=== PATIENT | male | born 1950 | race Caucasian/White ===

== ENCOUNTER 2017-09-05 09:23 | Day surgery (SDC) | payer MEDICARE, OTHER ==
[2017-09-05] MEDS: NS 1,000 ML IV (10:17)
[2017-09-05] MEDS ORDERED: PROPOFOL 200 MG/20 ML VIAL As Ordered (10:44)
[2017-09-05] MEDS ORDERED: LIDOCAINE 2% INJ 100 MG/5 ML SDV (FOR ANES.) As Ordered (10:44)
== END 2017-09-05 11:42 | disposition home or self-care (01) ==
LOC: M OPP 09:23
DX: Z12.11 Encounter for screening for malignant neoplasm of colon (principal); Z86.010 Personal history of colon polyps; D12.0 Benign neoplasm of cecum; K64.0 First degree hemorrhoids; K57.30 Diverticulosis of large intestine without perforation or abscess without bleeding; I48.91 Unspecified atrial fibrillation; I10 Essential (primary) hypertension; E78.5 Hyperlipidemia, unspecified; G47.30 Sleep apnea, unspecified; R06.83 Snoring; J01.90 Acute sinusitis, unspecified; Z79.82 Long term (current) use of aspirin; Z79.899 Other long term (current) drug therapy
CPT/HCPCS: 45385

== ENCOUNTER → 2017-12-19 | Outpatient (REF) | payer MEDICARE, OTHER ==
[2017-12-19 11:56] LABS: ANION GAP 6 MEQ/L (8-16); BLOOD UREA NITROGEN 17 MG/DL (7-18); CALCIUM LEVEL 8.8 MG/DL (8.8-10.2); CARBON DIOXIDE LEVEL 26 MEQ/L (21-32); CHLORIDE LEVEL 107 MEQ/L (98-107); CREATININE FOR GFR 1.54 MG/DL (0.70-1.30); GLOMERULAR FILTRATION RATE 48.4 (>49); GLUCOSE, FASTING 84 MG/DL (70-100); POTASSIUM SERUM 4.2 MEQ/L (3.5-5.1); SODIUM LEVEL 139 MEQ/L (136-145)
== END ==
LOC: M LABDRAW1 11:29
DX: R33.9 Retention of urine, unspecified (principal)

== ENCOUNTER → 2017-12-19 | Outpatient (REF) | payer MEDICARE, OTHER ==
[2017-12-19 11:41] LABS: BASO % 0.7 % (0.0-1.0); EOS # 0.3 10^3/uL (0.0-0.50); EOS % 4.3 % (0.0-3.0); HEMATOCRIT 42.1 % (42.0-52.0); HEMOGLOBIN 14.2 g/dl (13.5-17.5); IMMATURE GRANULOCYTE % 0.5 % (0-3.0); LYMPH # 1.7 10^3/uL (1.5-4.5); LYMPH % 29.7 % (24.0-44.0); MEAN CORPUSCULAR HEMOGLOBIN 30.1 pg (27.0-33.0); MEAN CORPUSCULAR HGB CONC 33.7 g/dl (32.0-36.5); MEAN CORPUSCULAR VOLUME 89.2 fl (80.0-96.0); MONO # 0.3 10^3/uL (0.0-0.8); MONO % 4.5 % (0.0-5.0); NEUTROPHILS # 3.5 10^3/uL (1.8-7.7); NEUTROPHILS % 60.3 % (36.0-66.0); PLATELET COUNT, AUTOMATED 304 10^3/uL (150-450); RED BLOOD COUNT 4.72 10^6/uL (4.30-6.10); RED CELL DISTRIBUTION WIDTH 12.6 % (11.5-14.5); WHITE BLOOD COUNT 5.8 10^3/uL (4.0-10.0)
[2017-12-19 12:11] LABS: ALBUMIN 3.8 GM/DL (3.2-5.2); ALBUMIN/GLOBULIN RATIO 1.27 (1.00-1.93); ALKALINE PHOSPHATASE 49 U/L (45-117); ALT/SGPT 35 U/L (12-78); ANION GAP 9 MEQ/L (8-16); AST/SGOT 29 U/L (7-37); BILIRUBIN,TOTAL 0.5 MG/DL (0.2-1.0); BLOOD UREA NITROGEN 17 MG/DL (7-18); CALCIUM LEVEL 8.6 MG/DL (8.8-10.2); CARBON DIOXIDE LEVEL 25 MEQ/L (21-32); CHLORIDE LEVEL 108 MEQ/L (98-107); CHOLESTEROL LEVEL 129 MG/DL (<200); CHOLESTEROL RISK RATIO 2.632 (<5); CREATININE FOR GFR 1.54 MG/DL (0.70-1.30); GLOMERULAR FILTRATION RATE 48.4 (>49); GLUCOSE, FASTING 86 MG/DL (70-100); HDL CHOLESTEROL 49 MG/DL (>40); NON-HDL-C 80 MG/DL; POTASSIUM SERUM 4.3 MEQ/L (3.5-5.1); PROSTATIC SPECIFIC AG MONITOR 9.32 NG/ML (< 4.0); SODIUM LEVEL 142 MEQ/L (136-145); TOTAL PROTEIN 6.8 GM/DL (6.4-8.2); TRIGLYCERIDES LEVEL 100 MG/DL (<150)
== END ==
LOC: M LABDRAW1 11:26
DX: R97.20 Elevated prostate specific antigen [PSA] (principal); I10 Essential (primary) hypertension; R33.9 Retention of urine, unspecified
CPT/HCPCS: 80053

== ENCOUNTER → 2018-02-11 | Outpatient (REF) | payer MEDICARE, OTHER ==
[2018-02-11 16:07] LABS: HEMATOCRIT 42.1 % (42.0-52.0); HEMOGLOBIN 14.5 g/dl (13.5-17.5); MEAN CORPUSCULAR HEMOGLOBIN 30.3 pg (27.0-33.0); MEAN CORPUSCULAR HGB CONC 34.4 g/dl (32.0-36.5); MEAN CORPUSCULAR VOLUME 87.9 fl (80.0-96.0); PLATELET COUNT, AUTOMATED 250 10^3/uL (150-450); RED BLOOD COUNT 4.79 10^6/uL (4.30-6.10); RED CELL DISTRIBUTION WIDTH 12.8 % (11.5-14.5); WHITE BLOOD COUNT 6.5 10^3/uL (4.0-10.0)
[2018-02-11 16:17] LABS: ANION GAP 9 MEQ/L (8-16); BLOOD UREA NITROGEN 19 MG/DL (7-18); CALCIUM LEVEL 8.7 MG/DL (8.8-10.2); CARBON DIOXIDE LEVEL 25 MEQ/L (21-32); CHLORIDE LEVEL 111 MEQ/L (98-107); CREATININE FOR GFR 1.29 MG/DL (0.70-1.30); GLOMERULAR FILTRATION RATE 59.3 (>49); GLUCOSE, FASTING 83 MG/DL (70-100); SODIUM LEVEL 145 MEQ/L (136-145)
== END ==
LOC: M LABDRAW1 15:20
DX: I48.0 Paroxysmal atrial fibrillation (principal); I10 Essential (primary) hypertension
CPT/HCPCS: 80048

== ENCOUNTER → 2018-03-28 | Outpatient (REF) | payer MEDICARE, OTHER ==
[2018-03-28 13:51] LABS: ANION GAP 9 MEQ/L (8-16); BLOOD UREA NITROGEN 28 MG/DL (7-18); CARBON DIOXIDE LEVEL 24 MEQ/L (21-32); CHLORIDE LEVEL 111 MEQ/L (98-107); CREATININE FOR GFR 1.31 MG/DL (0.70-1.30); GLOMERULAR FILTRATION RATE 58.3 (>49); GLUCOSE, FASTING 104 MG/DL (70-100); POTASSIUM SERUM 3.9 MEQ/L (3.5-5.1); PROSTATIC SPECIFIC AG MONITOR 5.66 NG/ML (< 4.0); SODIUM LEVEL 144 MEQ/L (136-145)
== END ==
LOC: M LABDRAW1 11:57
DX: R33.9 Retention of urine, unspecified (principal)
CPT/HCPCS: 84153

== ENCOUNTER → 2018-06-03 | Outpatient (REF) | payer MEDICARE, OTHER ==
[2018-06-03 12:35] LABS: PROSTATIC SPECIFIC AG MONITOR 6.5 NG/ML (< 4.0)
== END ==
LOC: M LABDRAW1 09:31
DX: R33.9 Retention of urine, unspecified (principal)
CPT/HCPCS: 84153

== ENCOUNTER → 2018-07-04 | Outpatient (REF) | payer MEDICARE, OTHER ==
[~2018-07-04] MED LIST: ASPI1TAB PO; ATOR1TAB19 PO; CARI1TAB7 PO; CINN500C9 PO; FLEC150T PO; GLUC1CAP10 PO; MELA1CAP PO; METO50TA7 PO; SAW1CAP2 PO; SILD50TA PO; VITA100067 PO
[2018-07-04 11:39] LABS: BLOOD UREA NITROGEN 18 MG/DL (7-18); CALCIUM LEVEL 8.7 MG/DL (8.8-10.2); CARBON DIOXIDE LEVEL 25 MEQ/L (21-32); CHLORIDE LEVEL 108 MEQ/L (98-107); CREATININE FOR GFR 1.25 MG/DL (0.70-1.30); GLOMERULAR FILTRATION RATE > 60.0 (>49); GLUCOSE, FASTING 89 MG/DL (70-100); POTASSIUM SERUM 4.1 MEQ/L (3.5-5.1); SODIUM LEVEL 141 MEQ/L (136-145)
== END ==
LOC: M LABDRAW1 09:59
PROVIDERS: ATTEND Urology
DX: R33.9 Retention of urine, unspecified (principal)

== ENCOUNTER → 2018-09-15 | Outpatient (CLI) | payer MEDICARE, OTHER ==
--- NOTE | 2018-09-15 10:18 | REP ---
PA and lateral chest: Comparison is 02/01/2009. 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 The lung ness are clear. The cardiac size is normal. The mauricio, mediastinum, and skeletal structures are unremarkable. Impression: Negative PA and lateral chest. There is no interval change. Electronically Signed by Reuben Gutierrez MD 09/15/2018 10:09 A
[2018-09-15 17:27] LABS: BASO # 0.1 10^3/uL (0.0-0.2); BASO % 1.5 % (0.0-1.0); EOS # 0.6 10^3/uL (0.0-0.50); EOS % 9.3 % (0.0-3.0); HEMATOCRIT 45.2 % (42.0-52.0); HEMOGLOBIN 14.9 g/dl (13.5-17.5); LYMPH # 1.3 10^3/uL (1.5-4.5); LYMPH % 21.9 % (24.0-44.0); MEAN CORPUSCULAR HEMOGLOBIN 30.1 pg (27.0-33.0); MEAN CORPUSCULAR VOLUME 91.3 fl (80.0-96.0); MONO # 0.5 10^3/uL (0.0-0.8); MONO % 8.9 % (0.0-5.0); NEUTROPHILS # 3.5 10^3/uL (1.8-7.7); NEUTROPHILS % 57.7 % (36.0-66.0); PLATELET COUNT, AUTOMATED 298 10^3/uL (150-450); RED BLOOD COUNT 4.95 10^6/uL (4.30-6.10)
== END ==
LOC: M ADAMS 09:50
PROVIDERS: ATTEND Physician Assistant Medical
DX: J20.9 Acute bronchitis, unspecified (principal)

== ENCOUNTER → 2019-01-24 | Outpatient (REF) | payer MEDICARE, OTHER ==
[~2019-01-24] MED LIST changes: -ASPI1TAB PO; +ASPI81TA26 PO
[2019-01-24 11:47] LABS: BASO # 0.1 10^3/uL (0.0-0.2); BASO % 0.9 % (0.0-1.0); EOS # 0.3 10^3/uL (0.0-0.50); EOS % 5.8 % (0.0-3.0); HEMATOCRIT 43.7 % (42.0-52.0); HEMOGLOBIN 14.4 g/dl (13.5-17.5); LYMPH # 1.5 10^3/uL (1.5-4.5); LYMPH % 27.8 % (24.0-44.0); MEAN CORPUSCULAR HEMOGLOBIN 30.5 pg (27.0-33.0); MEAN CORPUSCULAR VOLUME 92.6 fl (80.0-96.0); MONO # 0.3 10^3/uL (0.0-0.8); MONO % 5.4 % (0.0-5.0); NEUTROPHILS # 3.3 10^3/uL (1.8-7.7); NEUTROPHILS % 59.7 % (36.0-66.0); PLATELET COUNT, AUTOMATED 272 10^3/uL (150-450); RED BLOOD COUNT 4.72 10^6/uL (4.30-6.10); WHITE BLOOD COUNT 5.5 10^3/uL (4.0-10.0)
[2019-01-24 12:45] LABS: ALBUMIN 3.7 GM/DL (3.2-5.2); ALT/SGPT 27 U/L (12-78); BILIRUBIN,TOTAL 0.4 MG/DL (0.2-1.0); BLOOD UREA NITROGEN 12 MG/DL (7-18); CALCIUM LEVEL 8.8 MG/DL (8.8-10.2); CARBON DIOXIDE LEVEL 27 MEQ/L (21-32); CHLORIDE LEVEL 110 MEQ/L (98-107); CHOLESTEROL LEVEL 142 MG/DL (<200); CHOLESTEROL RISK RATIO 2.629 (<5); GLOMERULAR FILTRATION RATE > 60.0 (>49); GLUCOSE, FASTING 83 MG/DL (70-100); HDL CHOLESTEROL 54 MG/DL (>40); LDL CHOLESTEROL 72 MG/DL (<100); NON-HDL-C 88 MG/DL; POTASSIUM SERUM 4.2 MEQ/L (3.5-5.1); SODIUM LEVEL 144 MEQ/L (136-145); TRIGLYCERIDES LEVEL 82 MG/DL (<150)
== END ==
LOC: M LABDRAW1 07:51
PROVIDERS: ATTEND Family Medicine
DX: I10 Essential (primary) hypertension (principal)

== ENCOUNTER → 2019-06-02 | Outpatient (REF) | payer MEDICARE, OTHER | LOC: M LABDRAW1 11:47 | PROVIDERS: ATTEND Nurse Practitioner Family | DX: N40.0 Benign prostatic hyperplasia without lower urinary tract symptoms (principal) ==

== ENCOUNTER → 2020-01-27 | Outpatient (REF) | payer MEDICARE, OTHER ==
[2020-01-27 13:34] LABS: HEMATOCRIT 46.5 % (42.0-52.0); HEMOGLOBIN 15.4 g/dl (13.5-17.5); MEAN CORPUSCULAR HEMOGLOBIN 30.3 pg (27.0-33.0); MEAN CORPUSCULAR HGB CONC 33.1 g/dl (32.0-36.5); MEAN CORPUSCULAR VOLUME 91.5 fl (80.0-96.0); PLATELET COUNT, AUTOMATED 263 10^3/uL (150-450); RED BLOOD COUNT 5.08 10^6/uL (4.30-6.10); WHITE BLOOD COUNT 6.1 10^3/uL (4.0-10.0)
[2020-01-27 13:52] LABS: ALBUMIN 4.1 GM/DL (3.2-5.2); BILIRUBIN,TOTAL 0.9 MG/DL (0.2-1.0); CHOLESTEROL RISK RATIO 3.057 (<5); CREATININE FOR GFR 1.3 MG/DL (0.70-1.30); GLOMERULAR FILTRATION RATE 58.4 (>49); POTASSIUM SERUM 5.1 MEQ/L (3.5-5.1); PROSTATIC SPECIFIC AG MONITOR 5.02 NG/ML (< 4.00); TOTAL 25(OH) VITAMIN D 34.9 NG/ML (30.0-100.0); TOTAL PROTEIN 7.1 GM/DL (6.4-8.2)
== END ==
LOC: M LABDRWAD 13:14
PROVIDERS: ATTEND Family Medicine
DX: E55.9 Vitamin D deficiency, unspecified (principal); R97.20 Elevated prostate specific antigen [PSA]; I10 Essential (primary) hypertension; Z79.82 Long term (current) use of aspirin

== ENCOUNTER → 2020-05-20 | Outpatient (REF) | payer MEDICARE, OTHER | LOC: M LABDRWAD 12:23 | PROVIDERS: ATTEND Urology | DX: Z12.5 Encounter for screening for malignant neoplasm of prostate (principal) | CPT/HCPCS: 36415; G0103 ==

== ENCOUNTER → 2021-01-11 | Outpatient (CLI) | payer MEDICARE, OTHER ==
[2021-01-11 10:28] LABS: HEMATOCRIT 45.5 % (42.0-52.0); PLATELET COUNT, AUTOMATED 260 10^3/uL (150-450); WHITE BLOOD COUNT 5.7 10^3/uL (4.0-10.0)
[2021-01-11 10:54] LABS: ALBUMIN 3.9 GM/DL (3.2-5.2); ALT/SGPT 37 U/L (12-78); BILIRUBIN,TOTAL 1.1 MG/DL (0.2-1.0); BLOOD UREA NITROGEN 21 MG/DL (7-18); CALCIUM LEVEL 8.8 MG/DL (8.8-10.2); CARBON DIOXIDE LEVEL 26 MEQ/L (21-32); CHLORIDE LEVEL 107 MEQ/L (98-107); CHOLESTEROL LEVEL 164 MG/DL (<200); CHOLESTEROL RISK RATIO 2.827 (<5); CREATININE FOR GFR 1.15 MG/DL (0.70-1.30); GLOMERULAR FILTRATION RATE > 60.0 (>49); GLUCOSE, FASTING 79 MG/DL (70-100); HDL CHOLESTEROL 58 MG/DL (>40); LDL CHOLESTEROL 88 MG/DL (<100); NON-HDL-C 106 MG/DL; POTASSIUM SERUM 4.4 MEQ/L (3.5-5.1); PROSTATIC SPECIFIC AG MONITOR 5.21 NG/ML (< 4.00); SODIUM LEVEL 141 MEQ/L (136-145); TRIGLYCERIDES LEVEL 90 MG/DL (<150)
== END ==
LOC: M WUC 08:25
PROVIDERS: ATTEND Family Medicine
DX: E55.9 Vitamin D deficiency, unspecified (principal); R97.20 Elevated prostate specific antigen [PSA]; I10 Essential (primary) hypertension; N40.1 Benign prostatic hyperplasia with lower urinary tract symptoms; N13.8 Other obstructive and reflux uropathy

== ENCOUNTER → 2021-01-11 | Outpatient (CLI) | payer MEDICARE, OTHER | LOC: M WUC 08:27 | PROVIDERS: ATTEND Urology | DX: N40.1 Benign prostatic hyperplasia with lower urinary tract symptoms (principal); N13.8 Other obstructive and reflux uropathy ==

== ENCOUNTER → 2021-02-28 | Outpatient (CLI) | payer MEDICARE, OTHER ==
--- NOTE | 2021-02-28 14:33 | REP ---
INDICATION: HERNIA COMPARISON: None. TECHNIQUE: Real time parkre scale ultrasound examination using linear high-frequency transducer. FINDINGS: Left inguinal canal appears normal. Right inguinal canal demonstrates small fat containing hernia only noted on Valsalva and immediately reverted to normal on relaxation. IMPRESSION: Small intermittent fat containing right inguinal hernia only noted during Valsalva. <Electronically signed by Jhonatan Campuzano > 02/28/21 [id number]
== END ==
LOC: M RAD 13:44
PROVIDERS: ATTEND Family Medicine
DX: K40.90 Unilateral inguinal hernia, without obstruction or gangrene, not specified as recurrent (principal)

== ENCOUNTER → 2021-04-15 | Outpatient (CLI) | payer MEDICARE, OTHER ==
[~2021-04-15] MED LIST changes: +CINN500C15 PO; +LOSA50TA88 PO; +MELA10CA6 PO; +NOXI1TAB PO; +SM S160C PO
[2021-04-15 11:39] LABS: BASO # 0.1 10^3/uL (0.0-0.2); BASO % 0.8 % (0.0-1.0); EOS # 0.2 10^3/uL (0.0-0.5); EOS % 3.3 % (0.0-3.0); HEMATOCRIT 44.5 % (42.0-52.0); HEMOGLOBIN 14.8 g/dl (13.5-17.5); LYMPH # 1.7 10^3/uL (1.5-5.0); MEAN CORPUSCULAR HEMOGLOBIN 30.8 pg (27.0-33.0); MEAN CORPUSCULAR HGB CONC 33.3 g/dl (32.0-36.5); MEAN CORPUSCULAR VOLUME 92.5 fl (80.0-96.0); MONO # 0.3 10^3/uL (0.0-0.8); MONO % 5.7 % (2.0-8.0); NEUTROPHILS # 3.7 10^3/uL (1.5-8.5); NEUTROPHILS % 61.9 % (36.0-66.0); PLATELET COUNT, AUTOMATED 264 10^3/uL (150-450); RED BLOOD COUNT 4.81 10^6/uL (4.30-6.10)
[2021-04-15 13:57] LABS: ALBUMIN 3.8 GM/DL (3.2-5.2); ALT/SGPT 44 U/L (12-78); BILIRUBIN,TOTAL 0.8 MG/DL (0.2-1.0); BLOOD UREA NITROGEN 21 MG/DL (7-18); CALCIUM LEVEL 9.5 MG/DL (8.8-10.2); CARBON DIOXIDE LEVEL 28 MEQ/L (21-32); CHLORIDE LEVEL 109 MEQ/L (98-107); CREATININE FOR GFR 1.17 MG/DL (0.70-1.30); GLOMERULAR FILTRATION RATE > 60.0 (>49); GLUCOSE, FASTING 96 MG/DL (70-100); POTASSIUM SERUM 4.2 MEQ/L (3.5-5.1); SODIUM LEVEL 141 MEQ/L (136-145); TOTAL PROTEIN 6.6 GM/DL (6.4-8.2)
--- NOTE | 2021-04-18 18:51 | ECGEPIP ---
[facility] Test Date: 2021-04-15 Pat Name: FRANKIE CORREA Department: Room: - Gender: Male Counter Weigher: FRANCES : 1950 Requested By: LAZARUS THOMPSON Order Number: [id number] Reading MD: Gasper Pereyra Measurements Intervals Cucumber Rate: 62 P: 50 IA: 224 QRS: -12 QRSD: 86 T: 17 QT: 390 QTc: 395 Interpretive Statements Sinus rhythm with 1st degree AV block Inferior infarct , age undetermined Comparison tracing not on file Electronically Signed on 04-18-2021 18:51:20 EDT by Gasper Pereyra
== END ==
LOC: M LAB 09:50
PROVIDERS: ATTEND Family Medicine
DX: Z01.818 Encounter for other preprocedural examination (principal)

== ENCOUNTER → 2021-04-18 | Outpatient (CLI) | payer MEDICARE, OTHER | LOC: M LABSMTC 10:57 | PROVIDERS: ATTEND Anesthesiology | DX: Z01.812 Encounter for preprocedural laboratory examination (principal); Z20.822 Contact with and (suspected) exposure to COVID-19 ==

== ENCOUNTER 2021-04-22 06:07 | Day surgery (SDC) | payer MEDICARE, OTHER ==
[~2021-04-22] VITALS: Ht 180.3 cm; Wt 96.6 kg
[~2021-04-22 06:07] MED LIST changes: +LIDOCAINE 1% MDV 20ML VIAL SQ PRN
--- OUTSIDE RECORDS SUMMARY | 2021-04-22 06:11 | CCD | Continuity of Care Document ---
Author Author Loop Summary, Buck Aguila Organization Unknown Address [address] [place] [address] [address] [place] [address] Phone [phone] Care Team Providers Care Engagement Manager Name Role Phone Jonny Childs MD AUTM [phone] Problems Active Problems Provider Date Impending infarction Mode Palomino MD Onset: 10/23/2012 Dyspnea Mode Palomino MD Onset: 10/23/2012 Ischemic heart disease screening Mode Palomino MD Onset : 10/23/2012 Atrial fibrillation Mode Palomino MD Onset: 10/23/2012 Palpitations Mode Palomino MD Onset: 09/30/2014 Paroxysmal atrial fibrillation Fermin Lundy MD Onset: 01/17/2016 Sleep apnea Fermin Lundy MD Onset: 05/2016 Screening for cardiovascular system disease Fermin Benavidez i, MD Onset: 01/17/2016 Obstructive sleep apnea syndrome Fermin Lundy MD Onset: 10/29/2019 Mixed hyperlipidemia Fermin Lundy MD Onset: Long-term current use of anticoagulant Noemi Khan, WOODY O nset: 09/25/2018 Essential hypertension Fermin Lundy MD Onset: 07/20/2017 Social History Type Date Description Comments Sex Unknown ETOH Use Drinks 1 Alcoholic Beverage Per Day Tobacco Use Start: Unknown Patient has never smoked Smoking Status Reviewed: 04/29/20 Patient has never smoked Allergies, Adverse Reactions, Alerts Description No Known Drug Allergies Medications Active Medications SIG Qnty Indications Ordering Provide r Date Atorvastatin Calcium 10mg Tablets 1/2 by mouth every day RanFermin Slade MD Losartan Potassium 50mg Tablets Take One Tablet By Mouth Every Day 90tabs Sea Lundy MD 03/18/2019 Vitamin D 2000Unit Capsules 1 po qd 90caps Mode Palomino MD 10/23/2012 Melatonin Maximum Strength 5mg Tab lets prn Mode Palomino MD 10/23/2012 Carisoprodol 350mg Tablets 1 po qd prn Mode Palomino MD 10/23/2012 Viagra prn Unknown Cpap every night at bedtime Unknown Zinc 25mg Tablets 1 tab every day Unknown Aspirin [address] 1 by mouth every day Unknown Immunizations CPT Code Status Date Vaccine Lot # U-Flu Given 04/08/2018 Influenza,Unspecified [id number] Refused 01/17/2016 Pneumococcal Immunization Vital Signs Date Vital Result Comment 04/29/2020 11:15am BP Systolic Right Arm 136 mmHg BP Diastolic Right Arm 82 mmHg Heart Rate 66 /min Weight 216.00 lb Height 71 inches 5'11" BMI (Body Mass Index) 30.1 kg/m2 01/27/20 High Density Lipid 52 Low Density Lipid 88 Triglycerides 94 Total Cholesterol 159 O2 % BldC Oximetry 98 % BSA (Body Surface Area) 2.18 m2 10/29/2019 8:56am BP Systolic Right Arm 128 mmHg BP Diastolic Right Arm 76 mmHg Heart Rate 68 /min Weight 212.00 lb Height 71 inches 5'11" BMI (Body Mass Index) 29.6 kg/m2 BSA (Body Surface Area) 2.16 m2 Results Description No Information Available Procedures Date Code Description Status 02/01/2021 04370 Loop - Interrogation Remote Comp leted 12/17/2020 52391 Loop - Interrogation Remote Comp leted 11/01/2020 92064 Loop - Interrogation Remote Comp leted Medical Devices Description No Information Available Encounters Description No Information Available Assessments Date Code Description Provider 02/01/2021 I48.0 Paroxysmal atrial fibrillation R Fermin Leo MD 02/01/2021 I48.0 Paroxysmal atrial fibrillation L oop Summary 12/17/2020 I48.0 Paroxysmal atrial fibrillation M marsha Wan MD 12/17/2020 I48.0 Paroxysmal atrial fibrillation L oop Summary 11/01/2020 I48.0 Paroxysmal atrial fibrillation R Fermin Leo MD 11/01/2020 I48.0 Paroxysmal atrial fibrillation L oop Summary Plan of Treatment Future Appointment(s):* 05/25/2021 10:00 am - Fermin Lundy MD at [facility] 04/10/2019 - Danny Wan MD* R00.2 Palpitations * I48.0 Paroxysmal atrial fibrillation * I44.0 Atrioventricular block, first degree Functional Status Description No Information Available Mental Status Description No Information Available Referrals Description No Information Available
--- OUTSIDE RECORDS SUMMARY | 2021-04-22 06:11 | CCD | Continuity of Care Document ---
Author Author Buck VEGA MD Organization Unknown Address [address] [place] [address] Phone [phone] Care Team Providers Care Returner Name Role Phone Jonny Childs M.D. AUTM [phone] AUTM Unavailable AUTM Unavailable Problems Active Problems Provider Date Essential hypertension Mode Ge MD Onset: 01/13/2013 Deviated nasal septum Pavan Silva MD Onset: 3 Epistaxis Pavan Silva MD Onset: 03/25/2013 Exostosis of external ear canal Mode Ge MD Onset: 0 01/06/2014 Social History Type Date Description Comments Sex Unknown Tobacco Use Start: Unknown Never Smoked Cigarettes ETOH Use 5 A Week Recreational Drug Use Denies Drug Use Tobacco Use Start: Unknown Denies Smoking Allergies, Adverse Reactions, Alerts Description No Known Drug Allergies Medications Active Medications SIG Qnty Indications Ordering Provide r Date Atorvastatin Calcium 10mg Tablets 1/2 tab every day Unknown Aspirin Ec 81mg Tablets DR wayne garcia day Unknown Losartan Potassium 50mg Tablets 1 by mouth every day Unknown Metamucil 48.57% Powder 1 tablespoon by mouth 1 -2 times daily ( take after eating/ meals). Unknown Immunizations Description No Information Available Vital Signs Date Vital Result Comment 03/23/2021 10:51am BP Systolic 147 mmHg BP Diastolic 91 mmHg Heart Rate 66 /min Body Temperature 98.2 F Height 71 inches 5'11" Weight 213.25 lb BMI (Body Mass Index) 29.7 kg/m2 [place] Body Weight 172 lb Weight 96.730 kg BSA (Body Surface Area) 2.17 m2 01/13/2013 2:02pm Height 71 inches 5'11" Weight 200.00 lb BMI (Body Mass Index) 27.9 kg/m2 [place] Body Weight 172 lb Weight 90.720 kg BSA (Body Surface Area) 2.11 m2 Results Description No Information Available Procedures Description No Information Available Medical Devices Description No Information Available Encounters Description No Information Available Assessments Description No Information Available Plan of Treatment 02/02/2014 - Mode Ge MD* 470 Deviated Nasal Septum* Comments:* Continue current regimen. * 389.10 Hearing Loss Sensorineural Unspec* Comments:* The patient was counseled to avoid unnecessary loud noises. Functional Status Description No Information Available Mental Status Description No Information Available Referrals Refer to Reason for Referral Status Appt Date Omero Vega JR, MD INGUINAL HERNIA Scheduled 03/23/[address] [place] [address] [phone]
--- OUTSIDE RECORDS SUMMARY | 2021-04-22 06:11 | CCD | Summary of Care ---
Author Author [facility] Organization [facility] Address Unknown Phone Unavailable Care Team Providers Care Freight Sales Broker Name Role Phone PCP Unavailable Encounter Details Care Team Description Date Type Department 02/08/2021 [facility] Anatomical Encounter Pathology at [place] [address] [place] [address] Allergies Not on Filedocumented as of this encounter (statuses as of 02/10/2021) Medications Not on filedocumented as of this encounter (statuses as of 02/10/2021) Active Problems Not on filedocumented as of this encounter (statuses as of 02/10/2021) Social History Date Tobacco Use Types Packs/Day Years Used Never Assessed Sex Assigned at Date Recorded Not on file documented as of this encounter Last Filed Vital Signs Not on filedocumented in this encounter Plan of Treatment Health Maintenance Due Date Last Done Comments Hepatitis C Screening (B. 1950 5903-0004) MMR Vaccines (1 of 1 - 09[birth year]11/1951 Standard series) DTaP,Tdap,and Td Vaccines 09/11/1958 (1 - Tdap) Colon Cancer Screening 10 09/11/2001 yrs Pneumococcal Vaccine: 65+ 09/11/2016 Years (1 of 1 - PPSV23) Varicella Vaccines (1 of 05/21/2020 03/26/2020 2 - 2-dose childhood series) Zoster Vaccines (2 of 2) 05/21/2020 03/26/2020 Influenza Vaccine 04/08/2021 04/06/2020, 05/20/2019, 05/14/2018, Additional history exists HIB Vaccines Aged Out No longer eligible based on patient's age to complete this topic Hepatitis A Vaccines Aged Out No longer eligibl e based on patient's age to complete this topic Hepatitis B Vaccines Aged Out No longer eligibl e based on patient's age to complete this topic IPV Vaccines Aged Out No longer eligible based on patient's age to complete this topic Pneumococcal Vaccine: Aged Out No longer eligib le based on patient's age to Pediatrics (0 to 5 Years) complete this topic and At-Risk Patients (6 to 64 Years) documented as of this encounter Results Not on filedocumented in this encounter
--- OUTSIDE RECORDS SUMMARY | 2021-04-22 06:11 | CCD ---
Author Organization Unknown Address [address] [place] [address] Phone [phone] Care Team Providers Care Plant And Equipment Worker Name Role Phone DR. PARESH OWEN 4 [phone] 2 [phone] Allergies Code Code System Name Reaction Severity Status Onset NKDA Medications Name Status Start Date Stop Date aspirin 81 mg capsule Take by oral route. Active Not available atorvastatin Completed 04/19/2021 atorvastatin 10 mg tablet TAKE ONE HALF TABLET BY MOUTH EVERY DAY Active Not available ciprofloxacin 500 mg tablet TAKE ONE TABLET BY MOUTH EVERY 12 HOURS Completed 04/19/2021 losartan Completed 04/19/2021 losartan 50 mg tablet TAKE ONE TABLET BY MOUTH EVERY DAY Active Not available melatonin Completed 04/19/2021 metronidazole 500 mg tablet TAKE ONE TABLET BY MOUTH THREE TIMES A DAY Completed 04/19/2021 mupirocin 2 % topical ointment APPLY TO AFFECTED AREA S TWO TIMES A DAY DIRECTED Completed 04/19/2021 Vitamin D Active Not available zinc Completed 04/19/2021 Problems Name Status Onset Date Source Obstructive Sleep Apnea Syndrome Active History Procedures Date Name Performed by Cardiac Ablation Using Fluoroscopy Matthew nce Information not available Tonsillectomy Information not avai lable Results Lab Results None recorded. Past Encounters 04/19/2021 Obstructive Sleep Apnea of Adult Mei Yi Sandeep, CROSSING TENDER-C: [address], [place] [address], Ph. Social History Tobacco Smoking Status Never Smoker Vaccine List Vaccine Type COVID-19, mRNA, LNP-S, PF, 100 mcg/0.5 m L dose 08/30/2020 Plan of Care Reminders Provider Appointments None recorded. Lab None recorded. Referral None recorded. Procedures None recorded. Surgeries None recorded. Imaging None recorded. Vitals 04/19/2021 10:45AM TM 1 YEAR FOLLOW UP Height Weight BMI 5 ft 11 in 205 lbs 28.6 kg/m2 04/20/2020 Height Weight BMI 5 ft 11 in 205 lbs 28.6 kg/m2 04/10/2019 Height Weight BMI 5 ft 11 in 202 lbs 28.2 kg/m2
--- OUTSIDE RECORDS SUMMARY | 2021-04-22 06:11 | CCD | Continuity of Care Document ---
Author Author Loop Summary, Buck Aguila Organization Unknown Address [address] [place] [address] [address] [place] [address] Phone [phone] Care Team Providers Care Hydro Sprayer Operator Name Role Phone Jonny Childs MD AUTM [phone] Problems Active Problems Provider Date Impending infarction [...] Fermin Lundy MD Onset: 10/29/2019 Mixed hyperlipidemia Ferimn Lundy MD Onset: Long-term current use of [...] Vaccine Lot # U-Flu Given 04/08/2018 Influenza,Unspecified [id number] Refused 01/17/2016 Pneumococcal Immunization Vital Signs Date [...] Available Procedures Date Code Description Status 02/01/2021 67639 Loop - Interrogation Remote Comp leted 12/17/2020 21299 Loop - Interrogation Remote Comp leted 11/01/2020 67652 Loop - Interrogation Remote Comp leted 09/14/2020 45477 Loop - Interrogation Remote Comp leted Medical [...] I48.0 Paroxysmal atrial fibrillation L oop Summary 09/14/2020 I48.0 Paroxysmal atrial fibrillation R Fermin Leo MD 09/14/2020 I48.0 Paroxysmal atrial fibrillation L oop Summary Plan of Treatment Future Appointment(s):* 03/29/2021 8:15 am - Loop Summary at [facility] * 05/25/2021 10:00 am - Fermin Lundy MD at [facility] 04/10/2019 - Danny Wan MD* R00.2 Palpitations * I48.0 Paroxysmal atrial fibrillation * I44.0 Atrioventricular block, first degree Functional Status Description No Information Available Mental Status Description No Information Available Referrals Description No Information Available
--- OUTSIDE RECORDS SUMMARY | 2021-04-22 06:11 | CCD ---
Author Author [facility] Organization [facility] Address Unknown Phone Unavailable Care Team Providers Care Lion Tamer Name Role Phone WINTER, M JOEL RUBBER PRESS OPERATOR Unavailable Unavailable WINTER, M JOEL RUBBER PRESS OPERATOR Unavailable Unavailable WINTER, M JOEL RUBBER PRESS OPERATOR Unavailable Unavailable WINTER, M JOEL RUBBER PRESS OPERATOR Unavailable Unavailable WINTER, M JOEL RUBBER PRESS OPERATOR Unavailable Unavailable WINTER, M JOEL RUBBER PRESS OPERATOR Unavailable Unavailable WINTER, M JOEL RUBBER PRESS OPERATOR Unavailable Unavailable WINTER, M JOEL RUBBER PRESS OPERATOR Unavailable Unavailable WINTER, M JOEL RUBBER PRESS OPERATOR Unavailable Unavailable WINTER, M JOEL RUBBER PRESS OPERATOR Unavailable Unavailable WINTER, M JOEL RUBBER PRESS OPERATOR Unavailable Unavailable WINTER, M JOEL RUBBER PRESS OPERATOR Unavailable Unavailable WINTER, M JOEL RUBBER PRESS OPERATOR Unavailable Unavailable WINTER, M JOEL RUBBER PRESS OPERATOR Unavailable Unavailable WINTER, M JOEL RUBBER PRESS OPERATOR Unavailable Unavailable WINTER, M JEOL RUBBER PRESS OPERATOR Unavailable Unavailable WINTER, M JOEL RUBBER PRESS OPERATOR Unavailable Unavailable WINTER, M JOEL RUBBER PRESS OPERATOR Unavailable Unavailable WINTER, M JOEL RUBBER PRESS OPERATOR Unavailable Unavailable WINTER, M JOEL RUBBER PRESS OPERATOR Unavailable Unavailable WINTER, M JOEL RUBBER PRESS OPERATOR Unavailable Unavailable WINTER, M JOEL RUBBER PRESS OPERATOR Unavailable Unavailable WINTER, M JOEL RUBBER PRESS OPERATOR Unavailable Unavailable WINTER, M JOEL RUBBER PRESS OPERATOR Unavailable Unavailable WINTER, M JOEL RUBBER PRESS OPERATOR Unavailable Unavailable WINTER, M JOEL RUBBER PRESS OPERATOR Unavailable Unavailable WINTER, M JOEL RUBBER PRESS OPERATOR Unavailable Unavailable WINTER, M JOEL RUBBER PRESS OPERATOR Unavailable Unavailable WINTER, M JOEL RUBBER PRESS OPERATOR Unavailable Unavailable WINTER, M JOEL RUBBER PRESS OPERATOR Unavailable Unavailable WINTER, M JOEL RUBBER PRESS OPERATOR Unavailable Unavailable WINTER, M JOEL RUBBER PRESS OPERATOR Unavailable Unavailable WINTER, M JOEL RUBBER PRESS OPERATOR Unavailable Unavailable Malu DAVID MD Unavailable Unavailable Malu DAVID MD Unavailable Unavailable Malu DAVID MD Unavailable Unavailable Malu DAVID MD Unavailable Unavailable Malu DAVID MD Unavailable Unavailable Malu DAVID MD Unavailable Unavailable Malu DAVID MD Unavailable Unavailable DAVID, S BALTAZAR MD Unavailable Unavailable DAVID, S BALTAZAR MD Unavailable Unavailable DAVID, S BALTAZAR MD Unavailable Unavailable DAVID, S BALTAZAR MD Unavailable Unavailable DAVID, S BALTAZAR MD Unavailable Unavailable DAVID, S BALTAZAR MD Unavailable Unavailable DAVID, S BALTAZAR MD Unavailable Unavailable DVAID, S BALTAZAR MD Unavailable Unavailable DAVID, S BALTAZAR MD Unavailable Unavailable DAVID, S BALTAZAR MD Unavailable Unavailable DAVID, S BALTAZAR MD Unavailable Unavailable DAVID, S BALTAZAR MD Unavailable Unavailable DAVID, S BALTAZAR MD Unavailable Unavailable DAVID, S BALTAZAR MD Unavailable Unavailable DAVID, S BALTAZAR MD Unavailable Unavailable DAVID, S BALTAZAR MD Unavailable Unavailable DAVID, S BALTAZAR MD Unavailable Unavailable DAVID, S BALTAZAR MD Unavailable Unavailable DAVID, S BALTAZAR MD Unavailable Unavailable DAVID, S BALTAZAR MD Unavailable Unavailable DAVID, S BALTAZAR MD Unavailable Unavailable DAVID, S BALTAZAR MD Unavailable Unavailable DAVID, S BALTAZAR MD Unavailable Unavailable DAVID, S BALTAZAR MD Unavailable Unavailable DAVID, S BALTAZAR MD Unavailable Unavailable DAVID, S BALTAZAR MD Unavailable Unavailable DAVID, S BALTAZAR MD Unavailable Unavailable DAVID, S BALTAZAR MD Unavailable Unavailable DAVID, S BALTAZAR MD Unavailable Unavailable DAVID, S BALTAZAR MD Unavailable Unavailable DAVID, S BALTAZAR MD Unavailable Unavailable DAVID, S BALTAZAR MD Unavailable Unavailable DAVID, S BALTAZAR MD Unavailable Unavailable DAVID, S BALTAZAR MD Unavailable Unavailable DAVID, S BALTAZAR MD Unavailable Unavailable DAVID, S BALTAZAR MD Unavailable Unavailable DAVID, S BALTAZAR MD Unavailable Unavailable DAVID, S BALTAZAR MD Unavailable Unavailable DAVID, S BALTAZAR MD Unavailable Unavailable DAVID, S BALTAZAR MD Unavailable Unavailable DAVID, S BALTAZAR MD Unavailable Unavailable DAVID, S BALTAZAR MD Unavailable Unavailable DAVID, S BALTAZAR MD Unavailable Unavailable DAVID, S BALTAZAR MD Unavailable Unavailable DAVID, S BALTAZAR MD Unavailable Unavailable DAVID, S BALTAZAR MD Unavailable Unavailable DAVID, S BALTAZAR MD Unavailable Unavailable DAVID, S BALTAZAR MD Unavailable Unavailable DAVID, S BALTAZAR MD Unavailable Unavailable DAVID, S BALTAZAR MD Unavailable Unavailable DAVID, S BALTAZAR MD Unavailable Unavailable JOANN S BALTAZAR SCHAFER Unavailable Unavailable JOANN S BALTAZAR SCHAFER Unavailable Unavailable JOANN S BALTAZAR SCHAFER Unavailable Unavailable JOANN S BALTAZAR SCHAFER Unavailable Unavailable JOANN S BALTAZAR SCHAFER Unavailable Unavailable Ayla Vega JR, MD Unavailable Unavailable Ayla Vega JR, MD Unavailable Unavailable Ayla Vega JR, MD Unavailable Unavailable Ayla Vega JR, MD Unavailable Unavailable Ayla Vega JR, MD Unavailable Unavailable Ayla Vega JR, MD Unavailable Unavailable Ayla Vega JR, MD Unavailable Unavailable Ayla Vega JR, MD Unavailable Unavailable Ayla Vega JR, MD Unavailable Unavailable Ayla Vega JR, MD Unavailable Unavailable Ayla Vega JR, MD Unavailable Unavailable Ayla Vega JR, MD Unavailable Unavailable Ayla Vega JR, MD Unavailable Unavailable Ayla Vega JR, MD Unavailable Unavailable Ayla Vega JR, MD Unavailable Unavailable Ayla Vega JR, MD Unavailable Unavailable Ayla Vega JR, MD Unavailable Unavailable Ayla Vega JR, MD Unavailable Unavailable Ayla Vega JR, MD Unavailable Unavailable Ayla Vega JR, MD Unavailable Unavailable Ayla Vega JR, MD Unavailable Unavailable Ayla Vega JR, MD Unavailable Unavailable Ayla Vega JR, MD Unavailable Unavailable Ayla Vega JR, MD Unavailable Unavailable Ayla Vega JR, MD Unavailable Unavailable Ayla Vega JR, MD Unavailable Unavailable Ayla Vega JR, MD Unavailable Unavailable Ayla Vega JR, MD Unavailable Unavailable Ayla Vega JR, MD Unavailable Unavailable Ayla Vega JR, MD Unavailable Unavailable Ayla Vega JR, MD Unavailable Unavailable Ayla Vega JR, MD Unavailable Unavailable Ayla Vega JR, MD Unavailable Unavailable Ayla Vega JR, MD Unavailable Unavailable Ayla Vega JR, MD Unavailable Unavailable Ayla Vega JR, MD Unavailable Unavailable Ayla Vega JR, MD Unavailable Unavailable Ayla Vega JR, MD Unavailable Unavailable Ayla Vega JR, MD Unavailable Unavailable Ayla Vega JR, MD Unavailable Unavailable Ayla Vega JR, MD Unavailable Unavailable Ayla Vega JR, MD Unavailable Unavailable Ayla Vega JR, MD Unavailable Unavailable Ayla Vega JR, MD Unavailable Unavailable Ayla Vega JR, MD Unavailable Unavailable Ayla Vega JR, MD Unavailable Unavailable Ayla Vega JR, MD Unavailable Unavailable Ayla Vega JR, MD Unavailable Unavailable Ayla Vega JR, MD Unavailable Unavailable Ayla Vega JR, MD Unavailable Unavailable Ayla Vega JR, MD Unavailable Unavailable Ayla Vega JR, MD Unavailable Unavailable Ayla Vega JR, MD Unavailable Unavailable Ayla Vega JR, MD Unavailable Unavailable Porpiglio, L Mei RUBBER PRESS OPERATOR Unavailable Unavailable Porpiglio, L Mei RUBBER PRESS OPERATOR Unavailable Unavailable Porpiglio, L Mei RUBBER PRESS OPERATOR Unavailable Unavailable Porpiglio, L Mei RUBBER PRESS OPERATOR Unavailable Unavailable Porpiglio, L Mei RUBBER PRESS OPERATOR Unavailable Unavailable Porpiglio, L Mei RUBBER PRESS OPERATOR Unavailable Unavailable Porpiglio, L Mei RUBBER PRESS OPERATOR Unavailable Unavailable Porpiglio, L Mei RUBBER PRESS OPERATOR Unavailable Unavailable Porpiglio, L Mei RUBBER PRESS OPERATOR Unavailable Unavailable Porpiglio, L Mei RUBBER PRESS OPERATOR Unavailable Unavailable Porpiglio, L Mei RUBBER PRESS OPERATOR Unavailable Unavailable Porpiglio, L Mei RUBBER PRESS OPERATOR Unavailable Unavailable Porpiglio, L Mei RUBBER PRESS OPERATOR Unavailable Unavailable Porpiglio, L Mei RUBBER PRESS OPERATOR Unavailable Unavailable Porpiglio, L Mei RUBBER PRESS OPERATOR Unavailable Unavailable Porpiglio, L Mei RUBBER PRESS OPERATOR Unavailable Unavailable Porpiglio, L Mie RUBBER PRESS OPERATOR Unavailable Unavailable Porpiglio, L Mei RUBBER PRESS OPERATOR Unavailable Unavailable Porpiglio, L Mei RUBBER PRESS OPERATOR Unavailable Unavailable Porpiglio, L Mei RUBBER PRESS OPERATOR Unavailable Unavailable Re-disclosure Warning The records that you are about to access may contain information from federally-assisted alcohol or drug abuse programs. If such information is present, then the following federally mandated warning applies: This information has been disclosed to you from records protected by federal confidentiality rules (42 CFR part 2). The federal rules prohibit you from making any further disclosure of this information unless further disclosure is expressly permitted by the written consent of the person to whom it pertains or as otherwise permitted by 42 CFR part 2. A general authorization for the release of medical or other information is NOT sufficient for this purpose. The Federal rules restrict any use of the information to criminally investigate or prosecute any alcohol or drug abuse patient.The records that you are about to access may contain highly sensitive health information, the redisclosure of which is protected by Article 27-F of the [facility] Public Health law. If you continue you may have access to information: Regarding HIV / AIDS; Provided by facilities licensed or operated by the [facility] Office of Mental Health; or Provided by the [facility] Office for People With Developmental Disabilities. If such information is present, then the following [facility] mandated warning applies: This information has been disclosed to you from confidential records which are protected by state law. State law prohibits you from making any further disclosure of this information without the specific written consent of the person to whom it pertains, or as otherwise permitted by law. Any unauthorized further disclosure in violation of state law may result in a fine or [place] health care facility sentence or both. A general authorization for the release of medical or other information is NOT sufficient authorization for further disc losure. Family History Family Member Name Family Member Gender Family Member Status Date o f Status Description Data Source(s) Unknown Unknown Problem MEDENT ([facility], [facility]) Unknown Male Problem MEDENT ([facility]) fatal at age 45 Unknown Male Problem MEDENT ([facility]) Encounters Encounter Providers Location Date Indications Data Source(s ) Mei Hopkins, LATH HAND-C: [address] [place] [address], Ph. Attender: Mei Hopkins [facility], - [facility] - Office 04/19/2021 12:00:00 AM EDT ATHE NA ([facility]) Outpatient Attender: Omero Cason/Brannon/Joo/Robert dl 03/23/2021 10:45:00 AM EDT MEDENT ([facility]) Outpatient 03/02/2021 12:35:01 PM EDT [facility] Outpatient Admitter: BALTAZAR DAVID MDReferrer: BALTAZAR DAVID MD 02/08/2021 12:00:00 AM EDT Neoplasm of uncertain behavior of skin [facility] Neoplasm of uncertain behavior of skin Outpatient Attender: JOEL ADAMS NP [facility] 04/29/2020 11:30:00 AM EDT MEDENT ([facility]) Immunizations Vaccine Date Status Description Data Source(s) COVID-19, mRNA, LNP-S, PF, 100 mcg/0.5 mL dose 08/30/2020 12 :00:00 AM EST completed 08/30/2020 [facility] ([facility]) COVID-19 VACCINE Moderna 08/23/2020 12:00:00 AM EST completed [facility] Vaccine Series Complete: YESThis Data wa s Submitted to [facility] [employer]. COVID-19 VACCINE, MRNA-1273, LNP-S (MODERNA)/PF 08/23/2020 1 2:00:00 AM EST completed [facility] COVID-19 VACCINE, MRNA-1273, LNP-S (MODERNA)/PF 07/30/2020 1 2:00:00 AM EST completed [facility] COVID-19 VACCINE Moderna 07/29/2020 12:00:00 AM EST completed [facility] Vaccine Series Complete: NOThis Data was Submitted to [facility] [employer]. PNEUMOCOCCAL 13-VALENT CONJUGATE VACCINE (DIPHTHERIA C RM)/PF 06/28/2020 12:00:00 AM EST completed [facility] INFLUENZA VACCINE QUADRIVALENT (65 YR UP)/MF59 C.1/PF 04/06/2020 12:00:00 AM EDT completed [facility] VARICELLA-ZOSTER VIRUS GLYCOPROTEIN E,REC/AS01B ADJUVA NT/PF 03/26/2020 12:00:00 AM EDT completed [facility] Medications Medication Brand Name Start Date Product Form Dose Route Admi nistrative Instructions Pharmacy Instructions Status Indications Reaction Description Data Source(s) 50 mg 02/21/2021 12:00:00 AM EDT tablet 90 TAKE ONE TABLET BY MOUTH EVERY DAY TAKE ONE TABLET BY MOUTH EVERY DAY SOLD: 02/23/2021 [facility] atorvastatin 10 MG Oral Tablet ATORVASTATIN CALCIUM 01/14/2021 1 2:00:00 AM EDT tablet 45 TAKE ONE-HALF TABLET BY MOUTH EV [place] DAY TAKE ONE-HALF TABLET BY MOUTH EVERY DAY SOLD: 01/16/2021 [facility] atorvastatin 10 MG Oral Tablet ATORVASTATIN CALCIUM 01/14/2021 1 2:00:00 AM EDT tablet 45 TAKE ONE-HALF TABLET BY MOUTH EV [place] DAY TAKE ONE-HALF TABLET BY MOUTH EVERY DAY SOLD: 04/15/2021 [facility] 50 mg 08/25/2020 12:00:00 AM EST tablet 90 TAKE ONE TABLET BY MOUTH EVERY DAY TAKE ONE TABLET BY MOUTH EVERY DAY SOLD: 08/27/2020 [facility] 50 mg 08/25/2020 12:00:00 AM EST tablet 90 TAKE ONE TABLET BY MOUTH EVERY DAY TAKE ONE TABLET BY MOUTH EVERY DAY SOLD: 11/25/2020 [facility] atorvastatin 10 MG Oral Tablet ATORVASTATIN CALCIUM 07/19/2020 1 2:00:00 AM EST tablet 45 TAKE 1/2 TABLET BY MOUTH ONCE DA PADMINI TAKE 1/2 TABLET BY MOUTH ONCE DAILY SOLD: 07/20/2020 [facility] atorvastatin 10 MG Oral Tablet ATORVASTATIN CALCIUM 07/19/2020 1 2:00:00 AM EST tablet 45 TAKE 1/2 TABLET BY MOUTH ONCE DA PADMINI TAKE 1/2 TABLET BY MOUTH ONCE DAILY SOLD: 12/16/2020 [facility] Metronidazole 500 MG Oral Tablet METRONIDAZOLE 07/06/2020 12:0 0:00 AM EST tablet 21 TAKE ONE TABLET BY MOUTH THREE T IMES A DAY TAKE ONE TABLET BY MOUTH THREE TIMES A DAY SOLD: 07/06/2020 [facility] 500 mg 07/06/2020 12:00:00 AM EST tablet 14 TAKE ONE TABLET BY MOUTH EVERY 12 HOURS TAKE ONE TABLET BY MOUTH EVERY 12 HOURS SOLD: 07/06/2020 [facility] Losartan Potassium 50 MG Oral Tablet LOSARTAN POTASSIUM 02/2020 12:00:00 AM EDT tablet 90 TAKE ONE TABLET BY MOUTH MOJGAN RY DAY TAKE ONE TABLET BY MOUTH EVERY DAY SOLD: 03/16/2020 [facility] 50 mg 03/16/2020 12:00:00 AM EDT tablet 90 TAKE ONE TABLET BY MOUTH EVERY DAY TAKE ONE TABLET BY MOUTH EVERY DAY SOLD: 05/27/2020 [facility] zinc completed zinc [facility] (SL [facility]) Mupirocin 0.02 MG/MG Topical Ointment mu pirocin 2 % topical ointment APPLY TO AFFECTED AREA S TWO TIMES A DAY DIRECTED mupirocin 2 % topical ointment APPLY TO AFFECTED AREA S TWO TIMES A DAY DIRECTED completed mupirocin 0.02 MG/MG Topical Ointment [facility] ([facility], [facility]) Ciprofloxacin 500 MG Oral Tablet ciprofl oxacin 500 mg tablet TAKE ONE TABLET BY MOUTH EVERY 12 HOURS ciprofloxacin 500 mg tablet TAKE ONE TAB LET BY MOUTH EVERY 12 HOURS completed ciprofloxacin 500 MG Oral Tablet [facility] ([facility] Metronidazole 500 MG Oral Tablet metroni dazole 500 mg tablet TAKE ONE TABLET BY MOUTH THREE TIMES A DAY metronidazole 500 mg tablet TAKE ONE TAB LET BY MOUTH THREE TIMES A DAY completed metr onidazole 500 MG Oral Tablet [facility] ([facility]) melatonin completed melatonin [facility] ([facility]) atorvastatin completed Lipitor [facility] ([facility] losartan completed Cozaar ATHE NA ([facility]) Insurance Providers Payer name Policy type / Coverage type Policy ID Covered constitution party ID Covered constitution party's relationship to boando Policy [place] Plan Information BCBS MARIE ECHEVARRIA O 302/307 [id number] SP [id number] [facility] [id number] Self [id number] MEDICARE [id number] xxxxxxxxxxx [id number] [facility] [id number] SP [id number] MEDICARE A [id number] Self [id number] MEDICARE [id number] [place] [id number] E84 MEDICARE [id number] SP [id number] Medicare Medicare Primary [id number] Self [id number] MEDICARE [id number] SP [id number] T Medicare Medicare Primary [id number] Self [id number] [facility] [id number] [place] [id number] [facility] [id number] xxxxxxxxxxx [id number] RPR- FFS Self Pay [id number] Self [id number] [facility] [id number] [facility] Commercial [id number] Self [id number] Medicare Natl Gov't Servi Medicare Primary [id number] Self [id number] [facility] Health Care Health Maintenance Organization (HMO) [id number] 1 [id number] Self [id number] Medicare [place] Primary [id number] Self [id number] [facility] HEALTH INSURANCE COMPANY-O/P [id number] 18 [id number] BLUE CROSS BLUE SHIELD-O/P [id number] 18 [id number] [facility] S [id number] S [id number] [facility] BCBS P [id number] S [id number] [facility] Health Plan Health Maintenance Organization (HMO) [id number] 1 [id number] Family Dependent [id number] [facility] [id number] [facility] [id number] [facility] Commercial [id number] Self [id number] Medicare Natl Gov't Servi Medicare Primary [id number] Self [id number] Problems, Conditions, and Diagnoses Code Display Name Description Problem Type Effective Dates Data Source(s) D48.5 Neoplasm of uncertain behavior of skin N eoplasm of uncertain behavior of skin Diagnosis 02/08/2021 04:08:[address] [facility] [id number] Obstructive sleep apnea syndrome Obstructive Sle ep Apnea Syndrome Problem 09/27/2020 11:50:04 AM EDT [facility] ([facility]) Surgeries/Procedures Procedure Description Date Indications Data Source(s) OFFICE OUTPATIENT NEW 45 MINUTES 03/23/2021 12:00:00 A M EDT [facility] ([facility], ) Loop - Interrogation Remote 02/01/2021 12:00:00 AM EDT MEDENT ([facility]) Loop - Interrogation Remote 12/17/2020 12:00:00 AM EDT MEDENT ([facility]) Loop - Interrogation Remote 11/01/2020 12:00:00 AM EDT MEDENT ([facility]) Loop - Interrogation Remote 09/14/2020 12:00:00 AM EST MEDENT ([facility]) Loop - Interrogation Remote 08/03/2020 12:00:00 AM EST MEDENT ([facility]) Loop - Interrogation Remote 06/22/2020 12:00:00 AM EST MEDENT ([facility]) Loop - Interrogation Remote 05/17/2020 12:00:00 AM EST MEDENT ([facility]) Electrocardiogram Complete 04/29/2020 12:00:00 AM EDT MEDENT ([facility]) Loop - Interrogation Remote 04/06/2020 12:00:00 AM EDT MEDENT ([facility]) Loop - Interrogation Remote 02/27/2020 12:00:00 AM EDT MEDENT ([facility]) Results ID Date Data Source [id number] 02/17/2021 08:40:[address] [facility] Dermatopathology ConsultationName: FINESSE SNELL: [id number] Number: [id number] Date: 02/08/2021 00:00Received Date: 02/10/2021 08:10Physician(s): BALTAZAR DAVID MD FARAH, RAMSAYSpecimeadalberto(s) ReceivedA: R nostrilClinical HistoryIntermittently bleeding papule erosion versus BCC.DiagnosisSKIN, RIGHT NOSTRIL, BIOPSY: - CONSISTENT WITH PUSTULAR FOLLICULITIS, SEE COMMENT.NotePASD STAIN FAILS TO REVEAL ORGANISMS.Electronically Signed By Eulalio Clifton M.D., Attending Pathologist02/17/2021 08:40:38 Unless 'gross-only' is specified, the final diagnosis is based on amicroscopic examination of outreach representative sections of tissue.Gross DescriptionThe specimen is received in formalin and labeled with the patient's name,"Frankie Correa" and "right nostril". It consists of a 0.4 x 0.4 x 0.1 cmovoid, bernard-parker, and a granular skin shave which is inked, and entirelysubmitted in one cassette. CTC\\This report may include one or more immunohistochemical stain results thatuse analyte specific reagents. All positive and negative controls havebeen reviewed by the attending pathologist and are satisfactory. The testswere developed and their performance characteristics determined by [facility] Pathology department. They have not been cleared or approved by the USFood and Drug Administration. The FDA has determined that such clearanceor approval is not necessary. Name Value Range Interpretation Code Description Data Abigail rce(s) Supporting Document(s) Procedure Social History Code Duration Value Status Description Data Source(s ) Smoking 04/29/2020 12:00:00 AM EDT Patient has never smoked co mpleted Patient has never smoked MEDENT ([facility] [facility]) Vital Signs ID Date Data Source UNK Name Value Range Interpretation Code Description Data Source(s) Body height 71 [in_i] 71 [in_i] [facility] ([facility] Body mass index (BMI) [Ratio] 28.6 kg/m2 28.6 k g/m2 [facility] ([facility] Body weight 205 [lb_av] 205 [lb_av] [facility] ([facility]) [place] body weight 172 [lb_av] 172 [lb_av] MEDEN T ([facility], ) Systolic blood pressure 147 mm[Hg] 147 mm[Hg] M EDENT ([facility], ) Diastolic blood pressure 91 mm[Hg] 91 mm[Hg] MEDENT ([facility]) Heart rate 66 /min 66 /min MEDENT ([facility]) Body temperature 98.2 [degF] 98.2 [degF] MEDENT ([facility], ) Body height 71 [in_i] 71 [in_i] MEDENT ([facility]) 5'11" Body weight 213.25 [lb_av] 213.25 [lb_av] MEDEN T ([facility], ) Body mass index (BMI) [Ratio] 29.7 kg/m2 29.7 k g/m2 MEDENT ([facility]) Body weight 96.730 kg 96.730 kg MEDENT ([facility]) Body surface area Derived from formula 2.17 m2 2.17 m2 MEDENT ([facility]) Body surface area Derived from formula 2.18 m2 2.18 m2 MEDENT ([facility]) Systolic blood pressure 136 mm[Hg] 136 mm[Hg] M EDENT ([facility]) Diastolic blood pressure 82 mm[Hg] 82 mm[Hg] MEDENT ([facility]) Heart rate 66 /min 66 /min MEDENT ([facility] Body weight 216.00 [lb_av] 216.00 [lb_av] MEDEN T ([facility]) Body height 71 [in_i] 71 [in_i] MEDENT ([facility]) 5'11" Body mass index (BMI) [Ratio] 30.1 kg/m2 30.1 k g/m2 [facility] ([facility]) 01/27/20 Oxygen saturation in Arterial blood by Pulse oximetry 98 % 98 % [facility] ([facility]) Body mass index (BMI) [Ratio] 28.6 kg/m2 28.6 k g/m2 MARYCHUY ([facility] [place] [facility] Body height 71 [in_i] 71 [in_i] MARYCHUY ([facility] [place] [facility] Body weight 205 [lb_av] 205 [lb_av] MARYCHUY ([facility] Patient Treatment Plan of Care Planned Activity Planned Date Details Description Data Source (s) zinc MARYCHUY ([facility]) Mupirocin 0.02 MG/MG Topical Ointment [facility]UY ([facility]) Metronidazole 500 MG Oral Tablet MARYCHUY ([facility] melatonin MARYCHUY ([facility] losartan MARYCHUY ([facility]) [facility]iprofloxacin 500 MG Oral Tablet MARYCHUY ([facility] [place] [facility]) atorvastatin MARYCHUY ([facility])
--- OUTSIDE RECORDS SUMMARY | 2021-04-22 06:11 | CCD | Continuity of Care Document ---
Author Author Buck VEGA MD Organization Unknown Address [address] [place] [id number] Phone [phone] Care Team Providers Care Offal Worker Name Role Phone Jonny Childs M.D. AUTM [phone] AUTM Unavailable [facility] Unavailable Problems Active Problems Provider Date Essential hypertension Mode eG MD Onset: 01/13/2013 Deviated nasal septum Pavan [...] lb BMI (Body Mass Index) 29.7 kg/m2 [place] Body Weight 172 lb Weight 96.730 kg BSA (Body Surface Area) 2.17 m2 01/13/2013 2:02pm Height 71 inches 5'11" Weight 200.00 lb BMI (Body Mass Index) 27.9 kg/m2 [place] Body Weight 172 lb Weight 90.720 kg BSA (Body Surface Area) 2.11 m2 Results Description No Information Available Procedures Date Code Description Status 03/23/2021 14086 Office/Outpatient New Moderate M DM 45-59 Minutes Completed Medical Devices Description No Information Available Encounters Type Date Location Provider Dx Diagnosis Office Visit 03/23/2021 10:45a [facility] Omero perry JR, MD K40.90 Unil inguinal hernia, w/o obst or gangr, not spcf as recur Assessments Date Code Description Provider 03/23/2021 K40.90 Unilateral inguinal hernia, without obstruction or gangrene, not specified as recurrent Omero Vega JR, MD Plan of Treatment Future Appointment(s):* 05/05/2021 11:30 am - SILVERIO Dia at [facility] * 04/22/2021 7:30 am - Omero Vega JR, MD at [facility] 03/23/2021 - Omero Vega JR, MD* K40.90 Unilateral inguinal hernia, without obstruction or gangrene, not specified as recurrent* Comments:* The patient has a symptomatic right inguinal hernia and at this point I recommendation is to proceed with operative repair of this symptomatic right inguinal hernia. We've discussed open as well as laparoscopic techniques of inguinal hernia repair. We discussed the risks as well as benefits associated with inguinal h ernia repair both open and laparoscopic techniques. The patient would like to proceed with a laparoscopic technique and I agree with this . We've discussed laparoscopic TEP versus robotic T AP and the benefits as well as the techniques associated with the procedure itself and the risks associated with the procedures. Typical Postoperative recovery was discussed with the patient and expected postoperative course. The patient agrees to proceed with robotic assisted laparoscopic right inguinal hernia repair Functional Status Description No Information Available Mental Status Description No Information Available Referrals Refer to Reason for Referral Status Appt Date Omero Vega JR, MD INGUINAL HERNIA Scheduled 03/23/[address] [place] [phone]
[2021-04-22] MEDS ORDERED: BUPIVACAINE/EPIN 0.25% 30 ML VIAL As Ordered ONE (07:14)
[2021-04-22] MEDS ORDERED: ceFAZolin SOD 2 GM in IV 1 EA IV ONE (07:15)
[2021-04-22] MEDS ORDERED: LR 1,000 ML IV ONE (07:15)
[2021-04-22] MEDS ORDERED: LIDOCAINE 2% 100MG/5ML SDV (FOR ANES.) As Ordered ONE (07:21)
[2021-04-22] MEDS ORDERED: propofoL 200 MG/20 ML VIAL As Ordered ONE (07:21)
[2021-04-22] MEDS ORDERED: ACETAMINOPHEN 1000MG 100ML IV BTL (OFIRMEV) (J0131 PER 10MG) As Ordered ONE (07:21)
[2021-04-22] MEDS ORDERED: fentaNYL 100 MCG/2 ML INJECTION (J3010) As Ordered ONE ×4 (07:21→10:26)
[2021-04-22] MEDS ORDERED: SUGAMMADEX SODIUM 500 MG/5 ML VIAL (BRIDION) As Ordered ONE (07:21)
[2021-04-22] MEDS ORDERED: dexameTHASONE 4 MG/ML 1ML VIAL (J1100 PER 1MG) As Ordered ONE (07:21)
[2021-04-22] MEDS ORDERED: ONDANSETRON 4MG/2ML VIAL As Ordered ONE (07:21)
[2021-04-22] MEDS ORDERED: KETOROLAC 60MG 2ML VIAL As Ordered ONE (07:21)
[2021-04-22] MEDS ORDERED: ROCURONIUM BROMIDE 50 MG/5 ML VIAL As Ordered ONE (07:21)
[2021-04-22] MEDS ORDERED: MIDAZOLAM INJ 2MG/2ML VIAL (J2250 PER 1MG) As Ordered ONE (07:22)
[2021-04-22] MEDS ORDERED: LIDOCAINE 5% OINT 30GM TUBE As Ordered ONE (07:48)
[2021-04-22] MEDS ORDERED: ePHEDrine SULFATE 25 MG/5 ML(5MG/ML) SYRINGE As Ordered ONE (08:06)
[2021-04-22] MEDS ORDERED: HYDROMORPHONE HCL 0.5 MG/ 0.5 ML SYRINGE (J1170 PER 1) IV PRN (09:20)
[2021-04-22] MEDS ORDERED: ONDANSETRON 4MG/2ML VIAL IV PRN (09:20)
[2021-04-22] MEDS ORDERED: oxyCODONE 5MG TAB PO PRN (09:20)
[2021-04-22] MEDS ORDERED: fentaNYL 100 MCG/2 ML INJECTION (J3010) IV PRN (09:20)
[2021-04-22] MEDS ORDERED: LR 1,000 ML IV SCH ×2 (09:20→09:25)
[2021-04-22] MEDS ORDERED: NORCO, ANEXSIA 5/325MG TABLET (HYDROcodone/ACETAMINOPHEN) PO PRN (09:25)
[2021-04-22 11:00] VITALS: BP 133/87
[2021-04-22] MEDS ORDERED: IBUPROFEN 600MG TAB PO SCH (18:00)
== END 2021-04-22 11:00 | disposition home or self-care (01) ==
LOC: M SDC 06:07
PROVIDERS: ATTEND Surgery
DX: K40.90 Unilateral inguinal hernia, without obstruction or gangrene, not specified as recurrent (principal); I48.91 Unspecified atrial fibrillation; I10 Essential (primary) hypertension; E78.5 Hyperlipidemia, unspecified; G47.33 Obstructive sleep apnea (adult) (pediatric); N40.0 Benign prostatic hyperplasia without lower urinary tract symptoms; Z79.82 Long term (current) use of aspirin; Z79.899 Other long term (current) drug therapy
CPT/HCPCS: 49650; C1781; J0131; J0690; J1100; J1885; J2250; J2405; J3010; S2900

== ENCOUNTER → 2022-01-17 | Outpatient (CLI) | payer MEDICARE, OTHER ==
[~2022-01-17] MED LIST changes: -LIDOCAINE 1% MDV 20ML VIAL SQ PRN; +LOSA50TA28 PO; -LOSA50TA88 PO; +RA S160C PO; -SM S160C PO
== END ==
LOC: M ADAMS 08:54
PROVIDERS: ATTEND Urology
DX: Z12.5 Encounter for screening for malignant neoplasm of prostate (principal)
CPT/HCPCS: 36415; G0103

== ENCOUNTER → 2022-02-14 | Outpatient (CLI) | payer MEDICARE, OTHER ==
[2022-02-14 13:31] LABS: HEMATOCRIT 42.5 % (42.0-52.0); HEMOGLOBIN 14.2 g/dl (13.5-17.5); MEAN CORPUSCULAR HEMOGLOBIN 30.5 pg (27.0-33.0); MEAN CORPUSCULAR HGB CONC 33.4 g/dl (32.0-36.5); MEAN CORPUSCULAR VOLUME 91.2 fl (80.0-96.0); PLATELET COUNT, AUTOMATED 271 10^3/uL (150-450); RED BLOOD COUNT 4.66 10^6/uL (4.30-6.10); WHITE BLOOD COUNT 5.4 10^3/uL (4.0-10.0)
[2022-02-14 14:35] LABS: ALBUMIN 3.9 GM/DL (3.2-5.2); ALT/SGPT 27 U/L (12-78); BILIRUBIN,TOTAL 0.9 MG/DL (0.2-1.0); BLOOD UREA NITROGEN 13 MG/DL (7-18); CALCIUM LEVEL 8.8 MG/DL (8.8-10.2); CARBON DIOXIDE LEVEL 26 MEQ/L (21-32); CHLORIDE LEVEL 110 MEQ/L (98-107); CHOLESTEROL LEVEL 150 MG/DL (<200); CHOLESTEROL RISK RATIO 2.586 (<5); CREATININE FOR GFR 1.14 MG/DL (0.70-1.30); GLOMERULAR FILTRATION RATE > 60.0 (>42); GLUCOSE, FASTING 84 MG/DL (70-100); HDL CHOLESTEROL 58 MG/DL (>40); LDL CHOLESTEROL 76 MG/DL (<100); NON-HDL-C 92 MG/DL; SODIUM LEVEL 142 MEQ/L (136-145); TOTAL PROTEIN 6.7 GM/DL (6.4-8.2); TRIGLYCERIDES LEVEL 82 MG/DL (<150)
[2022-02-14 15:15] LABS: TOTAL 25(OH) VITAMIN D 29.5 NG/ML (30.0-100.0)
== END ==
LOC: M ADAMS 09:16
PROVIDERS: ATTEND Family Medicine
DX: E55.9 Vitamin D deficiency, unspecified (principal); I10 Essential (primary) hypertension; Z79.899 Other long term (current) drug therapy

== ENCOUNTER → 2022-03-06 | Outpatient (CLI) | payer MEDICARE, OTHER | LOC: M ADAMS 14:09 | PROVIDERS: ATTEND Urology | DX: R97.20 Elevated prostate specific antigen [PSA] (principal) ==

== ENCOUNTER → 2022-11-03 | Outpatient (REF) | payer MEDICARE, OTHER ==
[2022-11-03 14:42] LABS: APPEARANCE, URINE MANUAL CLOUDY (CLEAR); COLOR, URINE MANUAL RED (YELLOW)
[2022-11-03 14:44] LABS: GLUCOSE, URINE (UA) MANUAL NEGATIVE (NEGATIVE); KETONE, URINE MANUAL 1+ mg/dL (NEGATIVE); PH,URINE MAN 5.5 UNITS (5.0 - 7.0); PROTEIN, URINE MANUAL 3+ mg/dL (NEGATIVE); SPECIFIC GRAVITY,URINE MANUAL 1.015 (1.002-1.035)
[2022-11-03 14:45] LABS: BILIRUBIN, URINE MANUAL NEGATIVE (NEGATIVE); BLOOD URINE MANUAL POSITIVE (NEGATIVE); LEUKOCYTE ESTERASE, URINE MAN POSITIVE (NEGATIVE); NITRITE, URINE MANUAL NEGATIVE (NEGATIVE); UROBILINOGEN, URINE MANUAL NORMAL (NORMAL)
[2022-11-03 14:54] LABS: BACTERIA, URINE NONE SEEN; RBC, URINE TNTC /hpf (0-3); SQUAMOUS EPITHELIAL CELL URINE SMALL AMOUNT /hpf (SMALL AMT)
[2022-11-03 14:55] LABS: HYALINE CAST, URINE 0-1 /lpf (0-1)
== END ==
LOC: M LABDRWAD 12:33
PROVIDERS: ATTEND Nurse Practitioner Family
DX: R31.9 Hematuria, unspecified (principal)

== ENCOUNTER → 2022-11-08 | Outpatient (CLI) | payer MEDICARE, OTHER ==
[~2022-11-08] MED LIST changes: +ISOVUE-370 76% 100ML VIAL As Ordered ONE
== END ==
LOC: M PLAIMG 13:43 → M RAD 13:43
PROVIDERS: ATTEND Urology
DX: R31.9 Hematuria, unspecified (principal); Q61.02 Congenital multiple renal cysts; K76.89 Other specified diseases of liver; K80.20 Calculus of gallbladder without cholecystitis without obstruction; K57.30 Diverticulosis of large intestine without perforation or abscess without bleeding; N40.0 Benign prostatic hyperplasia without lower urinary tract symptoms; K40.90 Unilateral inguinal hernia, without obstruction or gangrene, not specified as recurrent
CPT/HCPCS: 36415; 74178; 80048; 81001; G0103; Q9967

== ENCOUNTER → 2022-11-08 | Outpatient (CLI) | payer MEDICARE, OTHER ==
[~2022-11-08] MED LIST changes: -ISOVUE-370 76% 100ML VIAL As Ordered ONE
[2022-11-08 15:10] LABS: APPEARANCE, URINE HAZY (CLEAR); BACTERIA, URINE AUTO NEGATIVE (NEGATIVE); BILIRUBIN, URINE AUTO NEGATIVE (NEGATIVE); BLOOD, URINE BLOOD 2+ (NEGATIVE); COLOR, URINE RED (YELLOW); GLUCOSE, URINE (UA) AUTO 1+ mg/dL (NEGATIVE); KETONE, URINE AUTO NEGATIVE (NEGATIVE); LEUKOCYTE ESTERASE, URINE AUTO NEGATIVE (NEGATIVE); NITRITE, URINE AUTO NEGATIVE (NEGATIVE); PROTEIN, URINE AUTO 2+ mg/dL (NEGATIVE); RBC, URINE AUTO TNTC /HPF (0-3); SQUAMOUS EPITHELIAL CELL UR AU 0 /HPF (0-6); UROBILINOGEN, URINE AUTO 0.2 mg/dL (0.0-2.0); WBC, URINE AUTO 2 /HPF (0-3)
[2022-11-08 15:44] LABS: BLOOD UREA NITROGEN 15 MG/DL (9-23); CARBON DIOXIDE LEVEL 25 MMOL/L (20-31); CHLORIDE LEVEL 107 MMOL/L (98-107); CREATININE FOR GFR 1.12 MG/DL (0.70-1.30); GLOMERULAR FILTRATION RATE > 60.0 (>42); GLUCOSE, FASTING 78 MG/DL (74-106); POTASSIUM SERUM 4.2 MMOL/L (3.5-5.1); SODIUM LEVEL 140 MMOL/L (136-145)
== END ==
LOC: M LAB 13:46
PROVIDERS: ATTEND Nurse Practitioner Family
DX: R31.9 Hematuria, unspecified (principal)

== ENCOUNTER → 2023-02-05 | Outpatient (REF) | payer MEDICARE, OTHER ==
[2023-02-05 13:29] LABS: BASO % 0.7 % (0.0-1.0); EOS # 0.2 10^3/uL (0.0-0.5); EOS % 4.3 % (0.0-3.0); HEMATOCRIT 48.2 % (42.0-52.0); HEMOGLOBIN 15.7 g/dl (13.5-17.5); LYMPH # 1.7 10^3/uL (1.5-5.0); LYMPH % 30.2 % (24.0-44.0); MEAN CORPUSCULAR HGB CONC 32.6 g/dl (32.0-36.5); MONO # 0.3 10^3/uL (0.0-0.8); NEUTROPHILS # 3.3 10^3/uL (1.5-8.5); NEUTROPHILS % 58.4 % (36.0-66.0); PLATELET COUNT, AUTOMATED 254 10^3/uL (150-450); RED BLOOD COUNT 5.24 10^6/uL (4.30-6.10); WHITE BLOOD COUNT 5.6 10^3/uL (4.0-10.0)
[2023-02-05 13:54] LABS: ALBUMIN 4.2 G/DL (3.2-5.2); ALKALINE PHOSPHATASE 50 U/L (46-116); ALT/SGPT 27 U/L (7.0-40); AST/SGOT 21 U/L (<34); BILIRUBIN,TOTAL 0.9 MG/DL (0.3-1.2); BLOOD UREA NITROGEN 16 MG/DL (9-23); CALCIUM LEVEL 9.8 MG/DL (8.3-10.6); CARBON DIOXIDE LEVEL 26 MMOL/L (20-31); CHLORIDE LEVEL 105 MMOL/L (98-107); CHOLESTEROL LEVEL 157 MG/DL (<200); CHOLESTEROL RISK RATIO 2.74 (<5); CREATININE FOR GFR 1.18 MG/DL (0.70-1.30); GLOMERULAR FILTRATION RATE > 60.0 (>42); GLUCOSE, FASTING 83 MG/DL (74-106); HDL CHOLESTEROL 57.2 MG/DL (>40); LDL CHOLESTEROL 83.4 MG/DL (<100); NON-HDL-C 99.8 MG/DL; POTASSIUM SERUM 4.5 MMOL/L (3.5-5.1); PROSTATIC SPECIFIC AG MONITOR 5.28 NG/ML (< 4.00); SODIUM LEVEL 141 MMOL/L (136-145); TOTAL 25(OH) VITAMIN D 30.5 NG/ML (20.0-100.0); TOTAL PROTEIN 6.6 G/DL (5.7-8.2); TRIGLYCERIDES LEVEL 82 MG/DL (<150)
== END ==
LOC: M LABDRWAD 12:32
PROVIDERS: ATTEND Family Medicine
DX: E55.9 Vitamin D deficiency, unspecified (principal); R97.20 Elevated prostate specific antigen [PSA]; I10 Essential (primary) hypertension

== ENCOUNTER 2023-02-06 11:37 | Emergency (ER) | payer MEDICARE, OTHER ==
[~2023-02-06] VITALS: Ht 180.3 cm; Wt 93.2 kg
[2023-02-06] MEDS ORDERED: BOOSTRIX VACCINE (TETANUS/DIPHTH/ACEL. PERTUSSIS) 0.5ML SYR IM.IMMUN ONE (14:45)
[2023-02-06 15:15] VITALS: BP 144/88; TEMP 96.8; O2SAT 100
== END 2023-02-06 15:17 | disposition home or self-care (01) ==
LOC: M ED 11:37
DX: S01.01XA Laceration without foreign body of scalp, initial encounter (principal); W22.8XXA Striking against or struck by other objects, initial encounter; N40.0 Benign prostatic hyperplasia without lower urinary tract symptoms; Y92.009 Unspecified place in unspecified non-institutional (private) residence as the place of occurrence of the external cause; Z79.02 Long term (current) use of antithrombotics/antiplatelets; Z79.82 Long term (current) use of aspirin; Z79.899 Other long term (current) drug therapy; Z23 Encounter for immunization

== ENCOUNTER 2023-04-18 11:22 | Day surgery (SDC) | payer MEDICARE, OTHER ==
[~2023-04-18] VITALS: Ht 180.3 cm; Wt 96.3 kg
[~2023-04-18 11:22] MED LIST changes: +NS 1,000 ML IV ONE
[2023-04-18] MEDS ORDERED: propofoL 200 MG/20 ML VIAL As Ordered ONE (11:52)
[2023-04-18 13:10] VITALS: TEMP 97
[2023-04-18 13:33] VITALS: BP 108/73; O2SAT 96
== END 2023-04-18 13:50 | disposition home or self-care (01) ==
LOC: M OPP 11:22
PROVIDERS: ATTEND Internal Medicine Gastroenterology
DX: Z12.11 Encounter for screening for malignant neoplasm of colon (principal); Z86.010 Personal history of colon polyps; D12.6 Benign neoplasm of colon, unspecified; K64.0 First degree hemorrhoids; K57.30 Diverticulosis of large intestine without perforation or abscess without bleeding; I48.91 Unspecified atrial fibrillation; G47.30 Sleep apnea, unspecified; Z99.89 Dependence on other enabling machines and devices; Z79.02 Long term (current) use of antithrombotics/antiplatelets; Z79.82 Long term (current) use of aspirin; Z79.899 Other long term (current) drug therapy

== ENCOUNTER → 2023-08-22 | Outpatient (REF) | payer MEDICARE ==
[~2023-08-22] MED LIST changes: -NS 1,000 ML IV ONE
[2023-08-22 19:28] LABS: BASO # 0.1 10^3/uL (0.0-0.2); BASO % 0.7 % (0.0-1.0); EOS # 0.1 10^3/uL (0.0-0.5); EOS % 1.8 % (0.0-3.0); HEMATOCRIT 45.6 % (42.0-52.0); HEMOGLOBIN 15.6 g/dl (13.5-17.5); MEAN CORPUSCULAR HEMOGLOBIN 30.5 pg (27.0-33.0); MEAN CORPUSCULAR HGB CONC 34.2 g/dl (32.0-36.5); MEAN CORPUSCULAR VOLUME 89.1 fl (80.0-96.0); MONO # 0.4 10^3/uL (0.0-0.8); MONO % 5.4 % (2.0-8.0); NEUTROPHILS # 4.6 10^3/uL (1.5-8.5); NEUTROPHILS % 63.8 % (36.0-66.0); PLATELET COUNT, AUTOMATED 304 10^3/uL (150-450); RED BLOOD COUNT 5.12 10^6/uL (4.30-6.10); WHITE BLOOD COUNT 7.2 10^3/uL (4.0-10.0)
[2023-08-22 19:34] LABS: BLOOD UREA NITROGEN 24 MG/DL (9-23); CALCIUM LEVEL 8.6 MG/DL (8.3-10.6); CARBON DIOXIDE LEVEL 26 MMOL/L (20-31); CHLORIDE LEVEL 108 MMOL/L (98-107); CREATININE FOR GFR 1.04 MG/DL (0.70-1.30); GLOMERULAR FILTRATION RATE > 60.0 (>42); GLUCOSE, FASTING 99 MG/DL (74-106); POTASSIUM SERUM 4.2 MMOL/L (3.5-5.1); SODIUM LEVEL 140 MMOL/L (136-145)
== END ==
LOC: M LAB REF 19:14
PROVIDERS: ATTEND Family Medicine
DX: Z01.818 Encounter for other preprocedural examination (principal)

== ENCOUNTER → 2023-12-27 | Outpatient (REF) | payer MEDICARE ==
[2023-12-27 19:05] LABS: BLOOD UREA NITROGEN 21 MG/DL (9-23); CALCIUM LEVEL 9.5 MG/DL (8.3-10.6); CARBON DIOXIDE LEVEL 26 MMOL/L (20-31); CHLORIDE LEVEL 110 MMOL/L (98-107); CREATININE FOR GFR 1.19 MG/DL (0.70-1.30); GLOMERULAR FILTRATION RATE > 60.0 (>42); GLUCOSE, FASTING 84 MG/DL (74-106); POTASSIUM SERUM 4.2 MMOL/L (3.5-5.1); SODIUM LEVEL 142 MMOL/L (136-145)
== END ==
LOC: M LABDRWAD 17:11
PROVIDERS: ATTEND Nurse Practitioner Family
DX: R39.89 Other symptoms and signs involving the genitourinary system (principal)

== ENCOUNTER → 2024-01-03 | Outpatient (REF) | payer MEDICARE | LOC: M LABDRWAD 12:30 | PROVIDERS: ATTEND Urology | DX: Z12.5 Encounter for screening for malignant neoplasm of prostate (principal) | CPT/HCPCS: 36415; G0103 ==

== ENCOUNTER → 2024-02-18 | Outpatient (REF) | payer MEDICARE ==
[2024-02-18 13:42] LABS: BASO # 0.1 10^3/uL (0.0-0.2); EOS # 0.2 10^3/uL (0.0-0.5); EOS % 4.4 % (0.0-3.0); HEMATOCRIT 45.2 % (42.0-52.0); HEMOGLOBIN 15.3 g/dl (13.5-17.5); LYMPH # 1.7 10^3/uL (1.5-5.0); LYMPH % 32.1 % (24.0-44.0); MEAN CORPUSCULAR HEMOGLOBIN 30.7 pg (27.0-33.0); MEAN CORPUSCULAR HGB CONC 33.8 g/dl (32.0-36.5); MEAN CORPUSCULAR VOLUME 90.8 fl (80.0-96.0); MONO # 0.3 10^3/uL (0.0-0.8); MONO % 5.6 % (2.0-8.0); NEUTROPHILS % 56.7 % (36.0-66.0); PLATELET COUNT, AUTOMATED 286 10^3/uL (150-450); RED BLOOD COUNT 4.98 10^6/uL (4.30-6.10); WHITE BLOOD COUNT 5.2 10^3/uL (4.0-10.0)
[2024-02-18 14:12] LABS: PROSTATIC SPECIFIC AG MONITOR 6.27 NG/ML (< 4.00)
[2024-02-18 14:14] LABS: ALBUMIN 4.1 G/DL (3.2-5.2); ALKALINE PHOSPHATASE 55 U/L (46-116); ALT/SGPT 24 U/L (7.0-40); AST/SGOT 22 U/L (<34); BILIRUBIN,TOTAL 1.2 MG/DL (0.3-1.2); BLOOD UREA NITROGEN 16 MG/DL (9-23); CALCIUM LEVEL 9.3 MG/DL (8.3-10.6); CARBON DIOXIDE LEVEL 27 MMOL/L (20-31); CHLORIDE LEVEL 109 MMOL/L (98-107); CHOLESTEROL LEVEL 167 MG/DL (<200); CHOLESTEROL RISK RATIO 3.12 (<5); CREATININE FOR GFR 1.19 MG/DL (0.70-1.30); GLOMERULAR FILTRATION RATE > 60.0 (>42); GLUCOSE, FASTING 86 MG/DL (74-106); HDL CHOLESTEROL 53.4 MG/DL (>40); LDL CHOLESTEROL 93.4 MG/DL (<100); NON-HDL-C 113.6 MG/DL; POTASSIUM SERUM 4.3 MMOL/L (3.5-5.1); SODIUM LEVEL 140 MMOL/L (136-145); TRIGLYCERIDES LEVEL 101 MG/DL (<150)
[2024-02-18 14:16] LABS: TOTAL 25(OH) VITAMIN D 25.3 NG/ML (20.0-100.0)
== END ==
LOC: M LABDRWAD 13:17
PROVIDERS: ATTEND Family Medicine
DX: E55.9 Vitamin D deficiency, unspecified (principal); R97.20 Elevated prostate specific antigen [PSA]; I10 Essential (primary) hypertension

== ENCOUNTER → 2025-02-23 | Outpatient (REF) | payer MEDICARE ==
[~2025-02-23] MED LIST changes: +CARI-555 PO; -CARI1TAB7 PO; -RA S160C PO; +SAW160CA23 PO
[2025-02-23 14:13] LABS: BASO # 0.0 10^3/uL (0.0-0.2); BASO % 0.7 % (0.0-1.0); EOS # 0.2 10^3/uL (0.0-0.5); EOS % 3.6 % (0.0-3.0); LYMPH # 1.8 10^3/uL (1.5-5.0); LYMPH % 31.1 % (24.0-44.0); MONO # 0.3 10^3/uL (0.0-0.8); MONO % 5.0 % (2.0-8.0); NEUTROPHILS # 3.5 10^3/uL (1.5-8.5); NEUTROPHILS % 59.4 % (36.0-66.0); PLATELET COUNT, AUTOMATED 260 10^3/uL (150-450)
[2025-02-23 14:19] LABS: ALT/SGPT 32.0 U/L (7.0-40); AST/SGOT 36.0 U/L (<34); CALCIUM LEVEL 9.2 MG/DL (8.3-10.6); CARBON DIOXIDE LEVEL 27.0 MMOL/L (20-31); CHLORIDE LEVEL 108.0 MMOL/L (98-107); CHOLESTEROL LEVEL 162.0 MG/DL (<200); CHOLESTEROL RISK RATIO 2.73 (<5); CREATININE FOR GFR 1.2 MG/DL (0.70-1.30); GLOMERULAR FILTRATION RATE 63.9 (>42); LDL CHOLESTEROL 88.5 MG/DL (<100); NON-HDL-C 102.7 MG/DL; POTASSIUM SERUM 5.0 MMOL/L (3.5-5.1); SODIUM LEVEL 144.0 MMOL/L (136-145); TOTAL 25(OH) VITAMIN D 27.2 NG/ML (20.0-100.0); TRIGLYCERIDES LEVEL 71.0 MG/DL (<150)
== END ==
LOC: M LABDRWAD 13:01
PROVIDERS: ATTEND Family Medicine
DX: Z00.00 Encounter for general adult medical examination without abnormal findings (principal); E55.9 Vitamin D deficiency, unspecified; E78.00 Pure hypercholesterolemia, unspecified

== ENCOUNTER → 2025-02-25 | Outpatient (REF) | payer MEDICARE ==
[2025-02-25 17:58] LABS: AMORPHOUS SEDIMENT SMALL (NEGATIVE); APPEARANCE, URINE CLOUDY (CLEAR); BACTERIA, URINE AUTO NEGATIVE (NEGATIVE); BILIRUBIN, URINE AUTO NEGATIVE (NEGATIVE); BLOOD, URINE BLOOD 3+ (NEGATIVE); GLUCOSE, URINE (UA) AUTO NEGATIVE (NEGATIVE); KETONE, URINE AUTO NEGATIVE (NEGATIVE); LEUKOCYTE ESTERASE, URINE AUTO NEGATIVE (NEGATIVE); MUCUS, URINE SMALL (NEGATIVE); NITRITE, URINE AUTO NEGATIVE (NEGATIVE); PROTEIN, URINE AUTO 2+ mg/dL (NEGATIVE); RBC, URINE AUTO TNTC /HPF (0-3); SPECIFIC GRAVITY URINE AUTO 1.019 (1.002-1.035); SQUAMOUS EPITHELIAL CELL UR AU 0 /HPF (0-6); UROBILINOGEN, URINE AUTO 0.2 mg/dL (0.0-2.0); WBC, URINE AUTO 4 /HPF (0-3)
== END ==
LOC: M LABDRWAD 17:05
PROVIDERS: ATTEND Nurse Practitioner Family
DX: N40.1 Benign prostatic hyperplasia with lower urinary tract symptoms (principal); N13.8 Other obstructive and reflux uropathy

== ENCOUNTER → 2025-05-21 | Outpatient (REF) | payer MEDICARE ==
[2025-05-21 14:59] LABS: CALCIUM LEVEL 8.8 MG/DL (8.3-10.6); CARBON DIOXIDE LEVEL 28.0 MMOL/L (20-31); CHLORIDE LEVEL 106.0 MMOL/L (98-107); CREATININE FOR GFR 1.2 MG/DL (0.70-1.30); GLOMERULAR FILTRATION RATE 63.9 (>42); POTASSIUM SERUM 4.1 MMOL/L (3.5-5.1); SODIUM LEVEL 143.0 MMOL/L (136-145)
== END ==
LOC: M LABDRWAD 13:21
PROVIDERS: ATTEND Internal Medicine Interventional Cardiology
DX: I10 Essential (primary) hypertension (principal)